=== PATIENT | female | born 1990 | race American Indian/Alaskan Native ===

== ENCOUNTER 2016-08-25 19:02 | Outpatient (CLI) | payer MEDICAID ==
[2016-08-25 19:31] VITALS: BP 125/70
[2016-08-25 22:56] LABS: Bilirubin,Urine NEG (Negative); Blood,Urine NEG (Negative); Ketones,Urine NEG (Negative); Leukocyte Esterase,Urine NEG (Negative); Mucus,Urine 3+ /HPF; Nitrite,Urine NEG (Negative)
--- NOTE | 2016-08-26 07:53 | Ultrasound Report ---
OB LIMITED INDICATION: Placenta scan. COMPARISON: None similar during this gestation. TECHNIQUE: Transabdominal grayscale ultrasound with Doppler interrogation. Gestation: Richards Placenta: Posterior fundal; no evidence of abruption. Placental Grade: I Heart Rate: 134 BPM
== END 2016-08-25 22:12 | disposition home or self-care (01) ==
LOC: TRG 19:02
PROVIDERS: ATTEND Obstetrics & Gynecology
DX: O47.03 False labor before 37 completed weeks of gestation, third trimester (principal); Z3A.30 30 weeks gestation of pregnancy
CPT/HCPCS: 59025; 76815; 81001

== ENCOUNTER 2016-09-28 22:21 | Outpatient (CLI) | payer MEDICAID ==
[2016-09-28] MEDS ORDERED: LACTATED RINGERS 500 ML IV ONE (22:25)
[2016-09-28 22:42] VITALS: BP 131/76
[2016-09-28] MEDS ORDERED: LACTATED RINGERS 1,000 ML ONE (22:46)
[2016-09-28 22:58] LABS: Bilirubin,Urine NEG (Negative); Blood,Urine NEG (Negative); Ketones,Urine NEG (Negative); Leukocyte Esterase,Urine SM (Negative); Mucus,Urine FEW /HPF; Nitrite,Urine NEG (Negative); RBC,Urine < 1.0 /HPF (0.0-6.0)
[2016-09-28] MEDS ORDERED: LACTATED RINGERS 1,000 ML IV ONE (23:00)
== END 2016-09-29 | disposition home or self-care (01) ==
LOC: TRG 22:21
PROVIDERS: ATTEND Obstetrics & Gynecology
DX: O47.03 False labor before 37 completed weeks of gestation, third trimester (principal); Z3A.35 35 weeks gestation of pregnancy
CPT/HCPCS: 59025; 81001; 96360; J7120

== ENCOUNTER 2016-10-13 11:34 | Observation (INO) | payer MEDICAID ==
[2016-10-13] MEDS ORDERED: LACTATED RINGERS 1,000 ML ONE (13:14)
[2016-10-13 13:18] VITALS: BP 113/64
== END 2016-10-13 13:30 | disposition home or self-care (01) ==
LOC: LD 11:34 → INTOOBSV 11:34
PROVIDERS: ADMIT Obstetrics & Gynecology; ATTEND Obstetrics & Gynecology
DX: O99.343 Other mental disorders complicating pregnancy, third trimester (principal); F31.9 Bipolar disorder, unspecified; O99.513 Diseases of the respiratory system complicating pregnancy, third trimester; J42 Unspecified chronic bronchitis; O99.333 Smoking (tobacco) complicating pregnancy, third trimester; Z87.01 Personal history of pneumonia (recurrent); Z83.3 Family history of diabetes mellitus; Z82.49 Family history of ischemic heart disease and other diseases of the circulatory system; Z3A.37 37 weeks gestation of pregnancy
CPT/HCPCS: G0378; G0379; J7120

== ENCOUNTER 2016-10-18 21:41 | Outpatient (CLI) | payer MEDICAID ==
[2016-10-18 22:28] VITALS: BP 135/81
== END 2016-10-18 22:59 | disposition home or self-care (01) ==
LOC: TRG 21:41
PROVIDERS: ATTEND Obstetrics & Gynecology
DX: O21.2 Late vomiting of pregnancy (principal); O26.893 Other specified pregnancy related conditions, third trimester; M54.9 Dorsalgia, unspecified; R51 Headache; Z3A.39 39 weeks gestation of pregnancy
CPT/HCPCS: 59025